=== PATIENT | female | born 1985 | race Caucasian/White ===

== ENCOUNTER 2016-08-28 23:25 | Inpatient (IN) | payer OTHER ==
[~2016-08-28] VITALS: Ht 154.9 cm; Wt 84.0 kg
[~2016-08-28 23:25] MED LIST: CIPR-9 PO; METH10TA PO
[2016-08-28 23:34] VITALS: BP 124/61; PULSE 108; RESP 16; TEMP 98.5; O2SAT 97
[2016-08-29] VITALS (11 sets, daily range): BP systolic 104–138; BP diastolic 57–65; PULSE 68–95; RESP 13–18; TEMP 98.3–99.1; O2SAT 94–100
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
[2016-08-29] MEDS ORDERED: HYDROmorphone HCL PF 1 MG/ML VIAL IV PUSH ONE (01:15)
[2016-08-29] MEDS ORDERED: CLINDAMYCIN INJ 900 MG in SODIUM CHLORIDE 0.9% INJ 100 ML IV ONE (01:15)
[2016-08-29] MEDS ORDERED: VANCOMYCIN INJ 1,200 MG in SODIUM CHLOR 0.9% 250 ML INJ 250 ML IV ONE (01:15)
[2016-08-29] MEDS ORDERED: SODIUM CHLOR 0.9% 1000 ML INJ 1,000 ML IV ONE ×2 (01:15)
[2016-08-29] MEDS ORDERED: CEFEPIME INJ 2,000 MG in SODIUM CHLORIDE 0.9% INJ 100 ML IV ONE (01:15)
[2016-08-29 01:44] LABS: AUTOMATED NEUTROPHIL # 11.9 TH/MM3 (1.8-7.7); BASOPHIL % 0.2 % (0.0-2.0); EOSINOPHIL # 0.5 TH/MM3 (0-0.4); EOSINOPHIL % 3.3 % (0.0-4.0); HEMATOCRIT 30.2 % (35.0-46.0); HEMO FLAGS DIFF FINAL; LYMPH % 13.1 % (9.0-44.0); MEAN CELL VOLUME 87.3 FL (80.0-100.0); MEAN CORPUSCULAR HEMOGLOBIN 29.4 PG (27.0-34.0); MEAN CORPUSCULAR HGB CONC 33.7 % (32.0-36.0); NEUT % 76.4 % (16.0-70.0); PLATELET COUNT 224 TH/MM3 (150-450); RED BLOOD COUNT 3.46 MIL/MM3 (4.00-5.30); RED CELL DISTRIBUTION WIDTH 13.7 % (11.6-17.2); WHITE BLOOD COUNT 15.5 TH/MM3 (4.0-11.0)
[2016-08-29] MEDS ORDERED: KETAMINE HCL 500 MG/5 ML VIAL IV PUSH ONE (01:45)
[2016-08-29 01:49] LABS: BACTERIA, URINE RARE /hpf; BLOOD, URINE NEG (NEG); GLUCOSE,URINE NEG (NEG); HYALINE CAST, URINE 1 /lpf (RARE); KETONE, URINE NEG (NEG); MUCUS URINE MOD /lpf (OCC); NITRITE,URINE NEG (NEG); PH, URINE 6.5 (5.0-8.5); RENAL EPITHELIAL CELLS <1 /hpf; SQUAMOUS EPITHELIAL CELL URINE 2 /hpf (0-5); URINE COLOR YELLOW (YELLW/STRAW)
[2016-08-29 01:50] LABS: COMMENT (UR) CATH-CULTURE IND; CULTURE IF INDICATED CATH CULTURE IND
[2016-08-29 01:51] LABS: ALT (GPT) 23 U/L (10-53); ANION GAP 8 MEQ/L (5-15); AST (GOT) 21 U/L (15-37); BICARBONATE 26.9 MEQ/L (21.0-32.0); BLOOD UREA NITROGEN 15 MG/DL (7-18); CHLORIDE 105 MEQ/L (98-107); GLOMERULAR FILTRATION RATE 97 ML/MIN (>89); POTASSIUM 3.8 MEQ/L (3.5-5.1); SODIUM (NA) 140 MEQ/L (136-145)
[2016-08-29 01:53] LABS: ALKALINE PHOSPHATASE 91 U/L (45-117); TOTAL BILIRUBIN ADULT 0.1 MG/DL (0.2-1.0)
[2016-08-29] MEDS ORDERED: ONDANSETRON HCL 4 MG/2 ML VIAL ONE (01:57)
[2016-08-29] MEDS ORDERED: BISACODYL 10 MG SUPP PR PRN (02:30)
[2016-08-29] MEDS ORDERED: Vancomycin Consult Pharmacy 1 EA OTHER SCH (02:30)
[2016-08-29] MEDS ORDERED: ACETAMINOPHEN 325 MG TAB PO PRN (02:30)
[2016-08-29] MEDS ORDERED: SODIUM CHLORIDE 0.9% FLUSH 5 ML FLUSH FLUSH PRN (02:30)
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
[2016-08-29] MEDS: SODIUM CHLOR 0.9% 1000 ML INJ 1,000 ML IV SCH ×3 (03:10→22:28)
[2016-08-29] MEDS: SODIUM CHLORIDE 0.9% FLUSH 5 ML FLUSH FLUSH SCH ×2 (09:00→21:00)
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
[2016-08-29] MEDS ORDERED: PROPOFOL 200 MG/20 ML AMP IV ONE (12:00)
[2016-08-29] MEDS: CEFEPIME INJ 1,000 MG in SODIUM CHLORIDE 0.9% INJ 100 ML IV SCH (14:00)
[2016-08-29] MEDS: ONDANSETRON HCL 4 MG/2 ML VIAL IVP PRN (14:01)
[2016-08-29] MEDS: LORazepam 2 MG/ML VIAL IV PUSH PRN (14:01)
[2016-08-29] MEDS: MORPHINE SULFATE 4 MG/ML INJ IV PRN (14:02)
[2016-08-29] MEDS ORDERED: BUPIVACAINE HCL PF 0.5% 30 ML VIAL ONE (14:58)
[2016-08-29] MEDS ORDERED: LIDOCAINE HCL 0.5% PF 50 ML VIAL ONE (14:58)
[2016-08-29] MEDS ORDERED: LIDOCAINE HCL 2% 50 ML VIAL ONE (14:59)
[2016-08-29] MEDS ORDERED: ceFAZolin INJ 1,000 MG VIAL ONE (15:00)
[2016-08-29] MEDS ORDERED: fentaNYL CITRATE 250 MCG/5 ML AMP ONE (15:44)
[2016-08-29] MEDS ORDERED: POVIDONE IODINE 10% SOLN 118 ML BOTTLE OTHER ONE (16:25)
[2016-08-29] MEDS ORDERED: NEOMYCIN/POLYMYXIN 1 ML G.U. IRRIGANT XX ONE (16:25)
--- NOTE | 2016-08-29 16:58 | HHI.PR ---
Immediate Post Op Note Procedure Date: Aug 29, 2016 Pre Op Diagnosis: (1) Cellulitis of right upper extremity Post Op Diagnosis: Surgeon: Aleksey Lezama III Maintenance Manager(s): staff Procedure: Incision and drainage of two large abscesses of right forearm Complications: none Specimen(s) removed: cultures Anesthesia: General Drains: Milena IVF Tourniquet time (min at mmHg) 7min @ 200mm Hg Patient to: PACU Patient Condition: Good Aleksey Lezama III, MD Aug 29, 2016 16:58
[2016-08-29] MEDS ORDERED: *morphine SULFATE 8 MG/ML PERIprocedure ONLY ONE ×2 (17:11→18:15)
[2016-08-29] MEDS ORDERED: DO NOT ADM ANY ANTICOAGULANT DRUGS XX PRN (18:00)
[2016-08-30] VITALS (8 sets, daily range): BP systolic 89–129; BP diastolic 40–79; PULSE 70–81; RESP 16–18; TEMP 97.4–98.8; O2SAT 92–100
[2016-08-30] MEDS: CEFEPIME INJ 1,000 MG in SODIUM CHLORIDE 0.9% INJ 100 ML IV SCH ×3 (00:29→23:37)
[2016-08-30] MEDS ORDERED: SODIUM CHLOR 0.9% 1000 ML INJ 1,000 ML IV ONE ×2 (01:15→09:15)
[2016-08-30] MEDS: VANCOMYCIN 1,000 MG/NS 250 ML IV SCH ×4 (03:35→15:10)
[2016-08-30] MEDS: MORPHINE SULFATE 4 MG/ML INJ IV PRN ×4 (09:01→21:38)
[2016-08-30] MEDS: SODIUM CHLORIDE 0.9% FLUSH 5 ML FLUSH FLUSH SCH ×2 (09:02→21:38)
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
[2016-08-30] MEDS ORDERED: HYDROmorphone HCL PF 1 MG/ML VIAL IV PUSH ONE (10:00)
[2016-08-30 12:13] LABS: AUTOMATED NEUTROPHIL # 8.6 TH/MM3 (1.8-7.7); BASOPHIL # 0.1 TH/MM3 (0-0.2); BASOPHIL % 0.5 % (0.0-2.0); EOSINOPHIL # 0.4 TH/MM3 (0-0.4); EOSINOPHIL % 3.4 % (0.0-4.0); HEMATOCRIT 34.6 % (35.0-46.0); HEMO FLAGS DIFF FINAL; LYMPH % 22.7 % (9.0-44.0); LYMPHOCYTE # 2.9 TH/MM3 (1.0-4.8); MEAN CELL VOLUME 87.3 FL (80.0-100.0); MEAN CORPUSCULAR HGB CONC 33.2 % (32.0-36.0); MONO % 5.9 % (0.0-8.0); NEUT % 67.5 % (16.0-70.0); PLATELET COUNT 260 TH/MM3 (150-450); RED BLOOD COUNT 3.97 MIL/MM3 (4.00-5.30); RED CELL DISTRIBUTION WIDTH 13.6 % (11.6-17.2); WHITE BLOOD COUNT 12.7 TH/MM3 (4.0-11.0)
[2016-08-30 12:20] LABS: ALT (GPT) 22 U/L (10-53); ANION GAP 10 MEQ/L (5-15); AST (GOT) 18 U/L (15-37); BICARBONATE 23.7 MEQ/L (21.0-32.0); CHLORIDE 109 MEQ/L (98-107); GLOMERULAR FILTRATION RATE 110 ML/MIN (>89); POTASSIUM 4.4 MEQ/L (3.5-5.1); SODIUM (NA) 143 MEQ/L (136-145)
[2016-08-30 12:22] LABS: ALKALINE PHOSPHATASE 92 U/L (45-117); TOTAL BILIRUBIN ADULT 0.2 MG/DL (0.2-1.0)
[2016-08-30 12:24] LABS: BLOOD UREA NITROGEN 8 MG/DL (7-18)
[2016-08-30] MEDS ORDERED: PHARMACY ORDERED LAB XX ONE (14:45)
--- NOTE | 2016-08-30 15:11 | HHI.PR ---
Subjective Remarks pain appears controlled Objective Vital Signs Date Time Temp Pulse Resp B/P Pulse Ox O2 Delivery O2 Flow Rate FiO2 08/30/16 13:36 20 08/30/16 12:00 97.9 81 17 98/53 97 08/30/16 11:15 98 21 08/30/16 10:23 17 08/30/16 09:06 19 08/30/16 08:00 98.8 70 17 90/40 96 08/30/16 04:00 98.6 72 18 99/56 95 08/30/16 00:00 98.8 78 18 89/54 95 08/29/16 21:33 97 Nasal Cannula 2.00 08/29/16 20:00 98.3 70 18 104/58 97 08/29/16 19:00 99.2 76 14 105/56 97 Room Air 08/29/16 18:00 77 13 123/74 99 Nasal Cannula 2 08/29/16 17:30 70 13 128/75 99 Nasal Cannula 2 08/29/16 17:15 66 13 117/68 99 Nasal Cannula 2 08/29/16 17:00 71 18 123/67 99 Nasal Cannula 2 08/29/16 16:57 98.0 71 18 131/77 99 Nasal Cannula 2 I/O 08/29/16 08/29/16 08/29/16 08/30/16 08/30/16 08/30/16 07:00 15:00 23:00 07:00 15:00 23:00 Intake Total 980 ml 1587 ml Output Total 225 ml 400 ml Balance 755 ml 1187 ml Intake Oral 480 ml 480 ml IV Total 100 ml 1107 ml Other 400 ml Output Urine Total 175 ml 400 ml Estimated Blood Loss 50 ml # Voids 1 # Bowel Movements 0 Result Diagram: 08/30/16 1100 08/30/16 1100 Objective Remarks right forearm wounds are clean, no purulence anywhere; cellulitis resolving, edema improved by more than 50%; NVI throughout; CR 2 seconds in finger tips; hand and forearm are soft; no crepitance anywhere or induration Assessment and Plan Problem List: (1) Cellulitis of right upper extremity Status: Acute Plan: continue IV abx, elevation, packing changes I will be out of town next several days; Dr Sierra will be covering (2) Sepsis affecting skin Status: Acute (3) Abscess Status: Acute Blaum,Aleksey Dell III MD Aug 30, 2016 15:11
[2016-08-31] VITALS (7 sets, daily range): BP systolic 96–153; BP diastolic 58–81; PULSE 60–88; RESP 15–18; TEMP 97–98.2; O2SAT 95–99
[2016-08-31] MEDS: VANCOMYCIN INJ 1,250 MG in SODIUM CHLOR 0.9% 250 ML INJ 250 ML IV SCH ×2 (02:47→15:43)
[2016-08-31] MEDS: MORPHINE SULFATE 4 MG/ML INJ IV PRN ×5 (05:44→17:49)
[2016-08-31] MEDS: SODIUM CHLORIDE 0.9% FLUSH 5 ML FLUSH FLUSH SCH ×2 (08:14→21:54)
[2016-08-31] MEDS: LORazepam 2 MG/ML VIAL IV PUSH PRN ×2 (09:21→13:11)
[2016-08-31] MEDS: CEFEPIME INJ 1,000 MG in SODIUM CHLORIDE 0.9% INJ 100 ML IV SCH (11:13)
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
[2016-08-31] MEDS ORDERED: MORPHINE SULFATE 4 MG/ML INJ IV PUSH PRN (19:45)
[2016-08-31] MEDS ORDERED: NALOXONE HCL 0.4 MG/ML AMP IV PUSH PRN (20:15)
[2016-08-31] MEDS: MORPHINE SULFATE 4 MG/ML INJ IV PUSH PRN (20:51)
[2016-08-31] MEDS: REMOVE OLD NICODERM (NICOTINE) PATCH TD SCH (21:00)
[2016-08-31] MEDS: METHADONE HCL 10 MG TAB PO SCH (21:54)
[2016-08-31] MEDS: NICOTINE 21 MG/24 HR PATCH TD SCH (21:54)
[2016-09-01] VITALS: BP 120/57; PULSE 76; RESP 17; TEMP 97.7; O2SAT 97
[2016-09-01] MEDS: CEFEPIME INJ 1,000 MG in SODIUM CHLORIDE 0.9% INJ 100 ML IV SCH ×2 (00:21→11:33)
[2016-09-01] MEDS: MORPHINE SULFATE 4 MG/ML INJ IV PUSH PRN ×5 (03:53→19:59)
[2016-09-01] MEDS: VANCOMYCIN INJ 1,250 MG in SODIUM CHLOR 0.9% 250 ML INJ 250 ML IV SCH ×2 (03:54→16:08)
[2016-09-01 07:39] VITALS: BP 115/57; PULSE 63; RESP 17; TEMP 98.1; O2SAT 95
[2016-09-01] MEDS: NICOTINE 21 MG/24 HR PATCH TD SCH (08:39)
[2016-09-01] MEDS: SODIUM CHLORIDE 0.9% FLUSH 5 ML FLUSH FLUSH SCH ×2 (08:40→20:00)
[2016-09-01 11:56] LABS: AUTOMATED NEUTROPHIL # 5.3 TH/MM3 (1.8-7.7); BASOPHIL # 0.1 TH/MM3 (0-0.2); BASOPHIL % 0.9 % (0.0-2.0); EOSINOPHIL # 0.5 TH/MM3 (0-0.4); EOSINOPHIL % 6.1 % (0.0-4.0); HEMATOCRIT 32.4 % (35.0-46.0); LYMPH % 25.9 % (9.0-44.0); LYMPHOCYTE # 2.3 TH/MM3 (1.0-4.8); MEAN CELL VOLUME 87.4 FL (80.0-100.0); MEAN CORPUSCULAR HGB CONC 33.2 % (32.0-36.0); MONO % 7.2 % (0.0-8.0); NEUT % 59.9 % (16.0-70.0); PLATELET COUNT 275 TH/MM3 (150-450); RED BLOOD COUNT 3.71 MIL/MM3 (4.00-5.30); RED CELL DISTRIBUTION WIDTH 13.6 % (11.6-17.2); WHITE BLOOD COUNT 8.8 TH/MM3 (4.0-11.0)
[2016-09-01 11:58] LABS: HEMO FLAGS AUTO DIFF
[2016-09-01 12:00] VITALS: BP 116/53; PULSE 73; RESP 16; TEMP 98.2; O2SAT 98
[2016-09-01 12:28] LABS: ALKALINE PHOSPHATASE 82 U/L (45-117); ALT (GPT) 60 U/L (10-53); ANION GAP 8 MEQ/L (5-15); AST (GOT) 44 U/L (15-37); BICARBONATE 27.3 MEQ/L (21.0-32.0); BLOOD UREA NITROGEN 8 MG/DL (7-18); CHLORIDE 107 MEQ/L (98-107); GLOMERULAR FILTRATION RATE 104 ML/MIN (>89); POTASSIUM 3.7 MEQ/L (3.5-5.1); SODIUM (NA) 142 MEQ/L (136-145); TOTAL BILIRUBIN ADULT 0.1 MG/DL (0.2-1.0)
[2016-09-01 12:39] LABS: BANDS 3 % (0-6); EOSINOPHILS 6 % (0-4); MYELOCYTES 1 % (0-0); NEUTROPHIL # MANUAL DIFF 5.5 TH/MM3 (1.8-7.7); POLYS (SEG NEUTROPHILS) 58 % (16-70); WBC DIFF SAMPLE 100
[2016-09-01 12:40] LABS: PLATELET ESTIMATE SMEAR NORMAL (NORMAL); PLATELET MORPHOLOGY NORMAL (NORMAL); SCAN/DIFF FINAL DIFF MANUAL
--- NOTE | 2016-09-01 14:34 | MP ---
cc: ALEKSEY LEZAMA III, M.D. DATE OF SURGERY: 08/29/2016 PREOPERATIVE DIAGNOSIS Right forearm cellulitis. POSTOPERATIVE DIAGNOSIS Right forearm cellulitis with abscesses x2. PROCEDURE Right forearm abscess incision and drainage x2. SURGEON Aleksey Lezama III, MD DETAILS OF PROCEDURE The patient was brought to the operating room and placed supine on the operating table. After the correct site and side of surgery were verified by members of each team in the room multiple times including the patient and myself and after adequate preoperative markings and preoperative written consent were verified by everyone, and after adequate preoperative timeout was achieved and after adequate general anesthesia had been achieved, the right upper extremity was prepped and draped in the traditional sterile surgical fashion. The limb was elevated and pressure was held on the brachial artery for one minute. A highly placed well-padded axillary tourniquet was inflated to 200 mmHg for a total of seven minutes. A probe was placed into two areas of previous incision and drainage that were continuing to drain purulent fluid. These were probed. Incisions were then made in both directions along the probe elevating the skin so as not to damage any underlying structures. Two large golf ball size pockets were made but did not include any deep structures. They were contained in the subcutaneous tissue. There was a tract between the two and this was accentuated and a drain was placed ultimately. All devitalized tissue was debrided and a liter's worth of antiseptic saline irrigation was used to thoroughly flush out the wound. The axillary tourniquet was released. The hand and all the fingers became immediately soft, pink and warm and had brisk capillary refill of less than two seconds. Generalized oozing at the skin edges at the base of the wound was present and pressure was held for two minutes and stopped completely. Gauze wet-to-dry packing was then placed along with a [place] drain. The hand and arm were thoroughly cleansed and dried. Hemostasis was present. There was no hematoma formation. A bulky soft circumferential dressing was applied in the usual fashion. The patient was awakened from anesthesia and transported to the post-anesthesia care unit awake and in stable condition at the end of the case. Sponge, needle and instrument counts were correct at the end of the case as reported by the nurses in the room. MD EDMAR Colmenares III /5:06 PM /2:17 PM
[2016-09-01] MEDS ORDERED: PHARMACY ORDERED LAB XX ONE (14:45)
[2016-09-01 16:00] VITALS: BP 140/72; PULSE 69; RESP 20; TEMP 97.8; O2SAT 95
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
[2016-09-01 20:00] VITALS: BP 125/58; PULSE 56; RESP 18; TEMP 98.7; O2SAT 96
[2016-09-01] MEDS: REMOVE OLD NICODERM (NICOTINE) PATCH TD SCH (20:00)
[2016-09-01] MEDS: METHADONE HCL 10 MG TAB PO SCH (21:21)
[2016-09-01] MEDS: HEPARIN SODIUM - SQ 10,000 UNITS/ML VIAL SQ SCH (21:22)
[2016-09-02] VITALS: BP 122/60; PULSE 54; RESP 16; TEMP 97.5; O2SAT 96
[2016-09-02] MEDS: MORPHINE SULFATE 4 MG/ML INJ IV PUSH PRN ×6 (00:33→19:01)
[2016-09-02] MEDS: CEFEPIME INJ 1,000 MG in SODIUM CHLORIDE 0.9% INJ 100 ML IV SCH ×3 (00:35→22:55)
[2016-09-02] MEDS ORDERED: PHARMACY ORDERED LAB XX ONE ×2 (02:45→14:45)
[2016-09-02] MEDS: VANCOMYCIN INJ 1,250 MG in SODIUM CHLOR 0.9% 250 ML INJ 250 ML IV SCH ×2 (03:00→15:58)
[2016-09-02] MEDS: HEPARIN SODIUM - SQ 10,000 UNITS/ML VIAL SQ SCH ×3 (05:39→20:35)
[2016-09-02 07:02] LABS: AUTOMATED NEUTROPHIL # 5.5 TH/MM3 (1.8-7.7); BASOPHIL # 0.1 TH/MM3 (0-0.2); BASOPHIL % 0.7 % (0.0-2.0); EOSINOPHIL # 0.5 TH/MM3 (0-0.4); EOSINOPHIL % 5.8 % (0.0-4.0); HEMATOCRIT 30.7 % (35.0-46.0); LYMPH % 26.2 % (9.0-44.0); LYMPHOCYTE # 2.4 TH/MM3 (1.0-4.8); MEAN CELL VOLUME 87.1 FL (80.0-100.0); MEAN CORPUSCULAR HEMOGLOBIN 29.2 PG (27.0-34.0); MEAN CORPUSCULAR HGB CONC 33.5 % (32.0-36.0); NEUT % 60.3 % (16.0-70.0); PLATELET COUNT 298 TH/MM3 (150-450); RED BLOOD COUNT 3.53 MIL/MM3 (4.00-5.30); RED CELL DISTRIBUTION WIDTH 13.3 % (11.6-17.2); WHITE BLOOD COUNT 9.1 TH/MM3 (4.0-11.0)
[2016-09-02 07:03] LABS: HEMO FLAGS AUTO DIFF
[2016-09-02 07:27] LABS: ALT (GPT) 48 U/L (10-53); ANION GAP 7 MEQ/L (5-15); AST (GOT) 24 U/L (15-37); BICARBONATE 29.2 MEQ/L (21.0-32.0); BLOOD UREA NITROGEN 12 MG/DL (7-18); CHLORIDE 105 MEQ/L (98-107); GLOMERULAR FILTRATION RATE 101 ML/MIN (>89); SODIUM (NA) 141 MEQ/L (136-145)
[2016-09-02 07:30] LABS: ALKALINE PHOSPHATASE 77 U/L (45-117); TOTAL BILIRUBIN ADULT 0.1 MG/DL (0.2-1.0)
[2016-09-02 08:00] VITALS: BP 119/61; PULSE 73; RESP 20; TEMP 98; O2SAT 95
[2016-09-02 08:06] LABS: EOSINOPHILS 8 % (0-4); METAMYELOCYTES 1 % (0-1); NEUTROPHIL # MANUAL DIFF 5.2 TH/MM3 (1.8-7.7); PLATELET ESTIMATE SMEAR NORMAL (NORMAL); PLATELET MORPHOLOGY NORMAL (NORMAL); POLYS (SEG NEUTROPHILS) 56 % (16-70); SCAN/DIFF FINAL DIFF MANUAL; WBC DIFF SAMPLE 100
[2016-09-02] MEDS: NICOTINE 21 MG/24 HR PATCH TD SCH (10:02)
[2016-09-02] MEDS: SODIUM CHLORIDE 0.9% FLUSH 5 ML FLUSH FLUSH SCH ×2 (10:02→20:35)
[2016-09-02 12:00] VITALS: BP 94/61; PULSE 74; RESP 20; TEMP 97.9; O2SAT 99
[2016-09-02] MEDS ORDERED: SODIUM CHLORID 0.9% 500 ML INJ 500 ML IV ONE (14:15)
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
[2016-09-02 17:28] VITALS: BP 120/56; PULSE 72; RESP 20; TEMP 98.4; O2SAT 96
[2016-09-02 20:21] VITALS: BP 126/67; PULSE 60; RESP 18; TEMP 99.1; O2SAT 97
[2016-09-02] MEDS: METHADONE HCL 10 MG TAB PO SCH (20:35)
[2016-09-02] MEDS: REMOVE OLD NICODERM (NICOTINE) PATCH TD SCH (20:36)
[2016-09-03 00:18] VITALS: BP 128/57; PULSE 79; RESP 18; TEMP 97.2; O2SAT 98
[2016-09-03] MEDS: MORPHINE SULFATE 4 MG/ML INJ IV PUSH PRN ×6 (02:16→22:15)
[2016-09-03] MEDS ORDERED: PHARMACY ORDERED LAB XX ONE (02:45)
[2016-09-03] MEDS: HEPARIN SODIUM - SQ 10,000 UNITS/ML VIAL SQ SCH ×3 (06:00→19:25)
[2016-09-03] MEDS: VANCOMYCIN INJ 1,250 MG in SODIUM CHLOR 0.9% 250 ML INJ 250 ML IV SCH (06:36)
[2016-09-03 08:00] VITALS: BP 104/51; PULSE 67; RESP 18; TEMP 96.4; O2SAT 96
[2016-09-03] MEDS: NICOTINE 21 MG/24 HR PATCH TD SCH (08:48)
[2016-09-03] MEDS: SODIUM CHLORIDE 0.9% FLUSH 5 ML FLUSH FLUSH SCH ×2 (08:48→19:28)
[2016-09-03] MEDS: CEFEPIME INJ 1,000 MG in SODIUM CHLORIDE 0.9% INJ 100 ML IV SCH ×2 (11:55→23:54)
[2016-09-03 12:00] VITALS: BP 110/52; PULSE 59; RESP 16; TEMP 96.4; O2SAT 95
[2016-09-03] MEDS: ONDANSETRON HCL 4 MG/2 ML VIAL IVP PRN (12:54)
[2016-09-03 16:00] VITALS: BP 102/51; PULSE 62; RESP 18; TEMP 96.5; O2SAT 93
[2016-09-03] MEDS ORDERED: BACT800T5 PO (16:54)
[2016-09-03] MEDS ORDERED: DOXY1TAB6 PO (16:54)
[2016-09-03] MEDS ORDERED: ONDA4INJ2 IVP (16:54)
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
--- NOTE | 2016-09-03 16:56 | HHI.DCPOC ---
Discharge Care Plan Diagnosis: (1) Sepsis affecting skin (2) Transaminitis (3) Hypotension (4) UTI (urinary tract infection) (5) Abscess (6) Cellulitis of right upper extremity Goals to Promote Your Health * To prevent worsening of your condition and complications * To maintain your health at the optimal level Directions to Meet Your Goals Take your medications as prescribed Follow your dietary instruction Follow activity as directed Keep your appointments as scheduled Take your immunizations and boosters as scheduled If your symptoms worsen call your PCP, if no PCP go to Urgent Care Center or Emergency Room Smoking is Dangerous to Your Health. Avoid second hand smoke Call the 24-hour hour crisis hotline for domestic abuse at Akbar Raymundo MD Sep 03, 2016 16:55
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
[2016-09-03] MEDS ORDERED: VANCOMYCIN INJ 1,500 MG in SODIUM CHLORID 0.9% 500 ML INJ 500 ML IV SCH (18:00)
--- NOTE | 2016-09-03 18:56 | HHI.FF ---
Face to Face Verification Diagnosis: (1) Sepsis affecting skin (2) Cellulitis of right upper extremity (3) Hypotension (4) UTI (urinary tract infection) Home Health Nursing Order: Wound care and dressing changes Nursing assessment with vital signs I have seen patient Mirtha Lo on 09/03/16. My clinical findings support the need for the requested home health care services because: Limited ability to care for self Infection w/ risk of complications I certify that my clinical findings support that this patient is homebound because: Unsteady gait/balance Unsafe to leave home unassisted Akbar Raymundo MD Sep 03, 2016 18:56
[2016-09-03] MEDS ORDERED: OXYC-392 PO (19:06)
[2016-09-03] MEDS: METHADONE HCL 10 MG TAB PO SCH (19:25)
[2016-09-03] MEDS: REMOVE OLD NICODERM (NICOTINE) PATCH TD SCH (19:28)
[2016-09-03 20:00] VITALS: BP 114/67; PULSE 89; RESP 18; TEMP 97.8; O2SAT 98
[2016-09-04 00:23] VITALS: BP 120/83; PULSE 79; RESP 18; TEMP 97; O2SAT 98
[2016-09-04] MEDS: MORPHINE SULFATE 4 MG/ML INJ IV PUSH PRN ×2 (01:36→09:33)
[2016-09-04] MEDS: HEPARIN SODIUM - SQ 10,000 UNITS/ML VIAL SQ SCH (06:24)
[2016-09-04 08:00] VITALS: BP 102/60; PULSE 70; RESP 18; TEMP 96.5; O2SAT 94
[2016-09-04] MEDS ORDERED: VANCOMYCIN INJ 1,500 MG in SODIUM CHLORID 0.9% 500 ML INJ 500 ML IV SCH (08:00)
[2016-09-04] MEDS: SODIUM CHLORIDE 0.9% FLUSH 5 ML FLUSH FLUSH SCH (08:13)
[2016-09-04] MEDS: NICOTINE 21 MG/24 HR PATCH TD SCH (08:15)
== END 2016-09-04 10:27 | disposition home health service (06) | DRG 854 ==
LOC: NEPE 23:25 → NEDA 08-29 02:19 → NEDH 08-29 06:44 → NEDA 08-29 12:39 → N07B 08-29 19:38
PROVIDERS: ADMIT Hospitalist; ATTEND Hospitalist
PROC: 0J9G0ZZ Drainage of Right Lower Arm Subcutaneous Tissue and Fascia, Open Approach (ICD-10-PCS; principal; 2016-08-29 15:48)
DX: A41.9 Sepsis, unspecified organism (principal); N39.0 Urinary tract infection, site not specified; F11.20 Opioid dependence, uncomplicated; F14.20 Cocaine dependence, uncomplicated; L02.413 Cutaneous abscess of right upper limb; T22.00XA Burn of unspecified degree of shoulder and upper limb, except wrist and hand, unspecified site, initial encounter; L03.113 Cellulitis of right upper limb; F17.200 Nicotine dependence, unspecified, uncomplicated; J38.5 Laryngeal spasm
CPT/HCPCS: 10061; 76937; 80053; 80074; 80202; 81001; 82565; 83605; 85007; 85025; 85027; 87015; 87040; 87070; 87086; 87102; 87116; 87176; 87205; 87206; 94770; 96365; 96375; 99152; 99153; J0690; J0692; J1170; J1644; J2060; J2270; J2405; J3010; J3370; J7030; J7040; J7050

== ENCOUNTER 2017-04-25 09:08 | Emergency (ER) | payer SELFPAY ==
[~2017-04-25] VITALS: Ht 152.4 cm; Wt 75.0 kg
[~2017-04-25 09:08] MED LIST changes: +BACT800T5 PO; -CIPR-9 PO; +DOXY1TAB6 PO; +OXYC-392 PO
[2017-04-25 09:11] VITALS: BP 132/58; PULSE 67; RESP 15; TEMP 97.8; O2SAT 96
[2017-04-25] MEDS ORDERED: METH40TA PO (09:28)
[2017-04-25] MEDS ORDERED: VENTAER INH (09:49)
--- NOTE | 2017-04-25 10:02 | PD ---
HPI Chief Complaint: Edema Time Seen by Provider: 09:36 Travel History International Travel<30 days: No Contact w/Intl Traveler<30days: No Traveled to known affect area: No History of Present Illness HPI The patient was seen and examined in the presence of the nurse. This patient complains of a one year history of bilateral hand pain and swelling. Pain limited to the small joints of the hands and sometimes the risks. No injury. History of IV drug abuse but denies use the last 7 months. No fever. No chest symptoms. No alleviating factors PFSH Past Medical History ?: Not LMP: 03/22/17 : 4 Para: 3 Miscarriage: 1 Ovarian Cysts: Yes Tubal Ligation: Yes Past Surgical History Section: Yes (X2) Other Surgery: Yes () Social History Alcohol Use: Yes Tobacco Use: Yes Substance Use: Yes (frequent heroin use, COCAINE) Allergies-Medications (Allergen,Severity, Reaction): Coded Allergies: No Known Allergies (Unverified , 04/25/17) Reported Meds & Prescriptions Reported Meds & Active Scripts Active Ventolin Hfa 18 GM Inh (Albuterol Sulfate) 90 Mcg/Act Aer 2 Puff INH Q6H PRN Reported Methadone (Methadone HCl) 40 Mg Tab 160 Mg PO DAILY Review of Systems General / Constitutional: No: Fever Eyes: No: Visual changes HENT: No: Headaches Cardiovascular: No: Chest Pain or Discomfort Respiratory: Positive: Shortness of Breath, Wheezing Gastrointestinal: No: Abdominal Pain Genitourinary: No: Dysuria Musculoskeletal: Positive: Edema, Pain Skin: No Rash Neurologic: No: Weakness Psychiatric: Positive: Substance Abuse, No: Depression Endocrine: No: Polydipsia Hematologic/Lymphatic: No: Easy Bruising Physical Exam Narrative GENERAL: Well-nourished, well-developed patient in no apparent distress. SKIN: Focused skin assessment reveals no rash and nodules. Skin is Warm and dry. HEAD: Atraumatic. Normocephalic. EYES: Pupils equal and round. No scleral icterus. No injection or drainage. ENT: No nasal bleeding or discharge. Mucous membranes pink and moist. NECK: Trachea midline. No JVD. CARDIOVASCULAR: Regular rate and rhythm. No murmur appreciated. RESPIRATORY: No accessory muscle use. Mild expiratory wheezing. Breath sounds equal bilaterally. GASTROINTESTINAL: Abdomen soft, non-tender, nondistended. Hepatic and splenic margins not palpable. MUSCULOSKELETAL: No obvious deformities. No clubbing. No cyanosis. Does have minor edema in the hands symmetric without erythema. No fluctuance or drainage. NEUROLOGICAL: Awake and alert. No obvious cranial nerve deficits. Motor grossly within normal limits. Normal speech. PSYCHIATRIC: Appropriate mood and affect; insight and judgment questionable . Data Data Last Documented VS Vital Signs Date Time Temp Pulse Resp B/P (MAP) Pulse Ox O2 Delivery O2 Flow Rate FiO2 04/25/17 09:11 97.8 67 15 132/58 (82) 96 MDM Medical Decision Making Medical Screen Exam Complete: Yes Emergency Medical Condition: Yes Medical Record Reviewed: Yes Differential Diagnosis Rheumatoid, lupus, connective tissue disorder nonspecific Narrative Course I have reviewed the patient's electronic medical record. Patient was here febrile or 2017 with infection requiring operative drainage Today seems like she has some type of undiagnosed connective tissue disease. I don't feel this is infectious. Recommend primary care follow-up to start. I did write her an inhaler for her wheezing and discussed smoking cessation Given information for [facility] Diagnosis Primary Impression: Undifferentiated inflammatory arthritis Additional Impression: Wheezing Additional Instructions: The patient was advised to follow up with their physician and return if they worsen. Med/Other Pt SpecificInfo: Prescription(s) given Scripts Albuterol 18 GM Inh (Ventolin Hfa 18 GM Inh) 90 Mcg/Act Aer 2 PUFF INH Q6H Y for SHORTNESS OF BREATH, #1 INHALER 0 Refills Prov: Pramod Fischer MD 04/25/17 Disposition: 01 DISCHARGE HOME Condition: Stable Pramod Fischer MD Apr 25, 2017 10:02
== END 2017-04-25 10:26 | disposition home or self-care (01) ==
LOC: NEPD 09:08
DX: M13.80 Other specified arthritis, unspecified site (principal); R06.2 Wheezing
CPT/HCPCS: 99283

== ENCOUNTER 2017-07-05 12:38 | Emergency (ER) | payer SELFPAY ==
[~2017-07-05] VITALS: Ht 154.9 cm; Wt 73.0 kg
[~2017-07-05 12:38] MED LIST changes: -BACT800T5 PO; -DOXY1TAB6 PO; -METH10TA PO; +METH40TA PO; -OXYC-392 PO; +VENTAER INH
[2017-07-05 12:40] VITALS: BP 124/65; PULSE 86; RESP 18; TEMP 97.8; O2SAT 98
--- NOTE | 2017-07-05 14:19 | PD ---
HPI Chief Complaint: ENT Complaint Time Seen by Provider: 13:50 Travel History International Travel<30 days: No Contact w/Intl Traveler<30days: No Traveled to known affect area: No History of Present Illness HPI 32-year-old female presents to the ED for evaluation at 2 day history of sore throat, bilateral ear pain, left greater than right, sinus congestion, rhinorrhea, cough. He endorses chills but has not measured a fever at home. She denies hearing difficulties. She states that her cough is productive of "black stuff." He states that she hears a scratching noise in her left ear. She did not receive this years flu vaccine. She endorses sick contacts, states that her boyfriend has been sick with similar symptoms. No treatment attempt at home. She is a current smoker. PFSH Past Medical History Medical History: Denies Significant Hx Diminished Hearing: No Tetanus Vaccination: Unknown ?: Not LMP: 07/04/17 : 4 Para: 3 Miscarriage: 1 Ovarian Cysts: Yes Tubal Ligation: Yes Past Surgical History Section: Yes (X2) Other Surgery: Yes () Social History Alcohol Use: No Tobacco Use: Yes Substance Use: No Allergies-Medications (Allergen,Severity, Reaction): Coded Allergies: No Known Allergies (Unverified Adverse Reaction, Unknown, 07/05/17) Reported Meds & Prescriptions Reported Meds & Active Scripts Active Tessalon Perles (Benzonatate) 100 Mg Cap 200 Mg PO TID PRN Ventolin Hfa 18 GM Inh (Albuterol Sulfate) 90 Mcg/Act Aer 2 Puff INH Q6H PRN Reported Methadone (Methadone HCl) 40 Mg Tab 160 Mg PO DAILY Review of Systems Except as stated in HPI: all other systems reviewed are Neg Physical Exam Narrative GENERAL: Well-nourished, well-developed white female in no acute distress. SKIN: Warm and dry. HEAD: Normocephalic. Atraumatic. EYES: No scleral icterus. No injection or drainage. PERRLA. EOMI. ENT: Pearly bell tympanic membranes bilaterally. No evidence of trauma of the ear canal. Nasal mucosa is moist. Oropharynx mild posterior erythema. Scant exudate. No edema. Uvula midline. NECK: Supple, trachea midline. No JVD or lymphadenopathy. CARDIOVASCULAR: Regular rate and rhythm without murmurs, gallops, or rubs RESPIRATORY: Breath sounds clear and equal bilaterally. No accessory muscle use. GASTROINTESTINAL: Abdomen soft, non-tender, nondistended. + Bowel sounds MUSCULOSKELETAL: No cyanosis, or edema. BACK: Nontender without obvious deformity. No CVA tenderness. Data Data Last Documented VS Vital Signs Date Time Temp Pulse Resp B/P (MAP) Pulse Ox O2 Delivery O2 Flow Rate FiO2 07/05/17 12:40 97.8 86 18 124/65 (84) 98 Orders Orders Influenzae A/B Antigen (07/05/17 14:15) Group A Rapid Strep Screen (07/05/17 14:15) Acetaminophen (Tylenol) (07/05/17 14:45) Strep Culture (Group A) (07/05/17 14:37) MDM Medical Decision Making Medical Screen Exam Complete: Yes Emergency Medical Condition: Yes Differential Diagnosis Viral syndrome versus foreign body of the ear versus cerumen impaction versus otitis media versus otitis externa versus influenza versus strep pharyngitis versus strep pharyngitis versus other Narrative Course 32-year-old female presents to the ED for evaluation at 2 day history of sore throat, bilateral ear pain, left greater than right, sinus congestion, rhinorrhea, cough. She did not receive this years flu vaccine. She endorses sick contacts, states that her boyfriend has been sick with similar symptoms. She is a current smoker. Lives reviewed. ENT exam reveals mild posterior oropharyngeal erythema and possibly scant exudates, otherwise unremarkable. Patient was administered 650 mg Tylenol. Rapid strep and flu swabs negative. This is viral syndrome. Patient is encouraged to continue treating with OTC pain relievers and decongestants. She is prescribed short course of Tessalon Perles to control cough. She is instructed to follow-up with the [facility] and was provided their information. She is stable and discharged home. Diagnosis Primary Impression: Viral syndrome Referrals: Ear / Nose / Throat Specialist Patient Instructions: General Instructions, Viral Syndrome (ED) Additional Instructions: Rest, hydrate. Push fluids such as sports drinks, Pedialyte, popsicles, clear broth. Continue with symptomatic treatment with OTC medications such as decongestants, pain relievers Tessalon Perles 3 times a day as needed to control cough. Increase handwashing frequently to avoid the spread of the virus to other family members and the community. Disinfect commonly touched surfaces such as light switches, microwaves, remote controls. Replace toothbrush at the end of this illness. Follow-up with the primary care provider this week. Return to the ED for any urgent or emergent medical condition. Med/Other Pt SpecificInfo: Prescription(s) given Scripts Benzonatate (Tessalon Perles) 100 Mg Cap 200 MG PO TID Y for COUGH, #15 CAP 0 Refills Prov: Efrain Her MD 07/05/17 Disposition: 01 DISCHARGE HOME Condition: Stable Carrie Lma Jul 05, 2017 14:19
[2017-07-05] MEDS ORDERED: ACETAMINOPHEN 325 MG TAB PO ONE (14:45)
[2017-07-05] MEDS ORDERED: BENZ100 PO (15:28)
== END 2017-07-05 15:57 | disposition home or self-care (01) ==
LOC: NEPD 12:38
DX: B34.9 Viral infection, unspecified (principal); Z72.0 Tobacco use; Z79.899 Other long term (current) drug therapy
CPT/HCPCS: 87081; 87804; 87880; 99283

== ENCOUNTER 2017-07-11 15:01 | Emergency (ER) | payer SELFPAY ==
[~2017-07-11 15:01] MED LIST changes: +BENZ100 PO
[2017-07-11 15:04] VITALS: BP 141/96; PULSE 95; RESP 14; TEMP 98.4; O2SAT 98
--- NOTE | 2017-07-11 16:23 | PD ---
HPI Chief Complaint: Anxiety Time Seen by Provider: 16:02 Travel History International Travel<30 days: No Contact w/Intl Traveler<30days: No Traveled to known affect area: No History of Present Illness HPI 32-year-old female presents to emergency department with multiple medical complaints complaining of left ear pain and throat pain. States that she was here last week and was treated for her throat pain but her left ear continues to be painful and she hears "crawling around in her ear". Patient also complains of decreased hearing. Patient states that she is also having some lesions on her scan and again feels like there are bugs crawling on her skin. 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 Patient then started complaining about vaginal discharge for 2 weeks described as creamy and yellow with an odor. Patient says that she is monogamous however, her boyfriend may not be. Patient states she had a tubal ligation previously says she is not . Patient denies fever or chills. States she does not have shortness of breath or chest pain. Denies nausea, vomiting or diarrhea. Denies pelvic cramping. Says she is monogamous but is unsure of her significant other. Patient denies fever or chills. PFSH Past Medical History Diminished Hearing: No : 4 Para: 3 Miscarriage: 1 Ovarian Cysts: Yes Tubal Ligation: Yes Past Surgical History Section: Yes (X2) Other Surgery: Yes () Social History Alcohol Use: No Tobacco Use: Yes Substance Use: No Allergies-Medications (Allergen,Severity, Reaction): Coded Allergies: No Known Allergies (Unverified Adverse Reaction, Unknown, 07/05/17) Reported Meds & Prescriptions Reported Meds & Active Scripts Active Permethrin Topical 5% (Permethrin) 5% Cream 1 Applic TOPICAL ONCE Apply head to toe, leave on for 8-12 hours, then rinse off. Ventolin Hfa 18 GM Inh (Albuterol Sulfate) 90 Mcg/Act Aer 1 Puff INH Q4H PRN Tessalon Perles (Benzonatate) 100 Mg Cap 200 Mg PO TID PRN Ventolin Hfa 18 GM Inh (Albuterol Sulfate) 90 Mcg/Act Aer 2 Puff INH Q6H PRN Reported Methadone (Methadone HCl) 40 Mg Tab 160 Mg PO DAILY Review of Systems Except as stated in HPI: all other systems reviewed are Neg Physical Exam Narrative GENERAL: Well developed well nourished in mild distress SKIN: Focused skin assessment warm/dry. Multiple small papules diffuse over the body. HEAD: Atraumatic. Normocephalic. EYES: Pupils equal and round. No scleral icterus. No injection or drainage. ENT: No nasal bleeding or discharge. Mucous membranes pink and moist. Left tympanic membrane flaccid. No obvious perforation. NECK: Trachea midline. No JVD. Left anterior lymphadenopathy CARDIOVASCULAR: Regular rate and rhythm. No murmur appreciated. RESPIRATORY: No accessory muscle use. Clear to auscultation. Breath sounds equal bilaterally. End expiratory wheezes GASTROINTESTINAL: Abdomen soft, non-tender, nondistended. Hepatic and splenic margins not palpable. MUSCULOSKELETAL: No obvious deformities. No clubbing. No cyanosis. No edema. NEUROLOGICAL: Awake and alert. No obvious cranial nerve deficits. Motor grossly within normal limits. Normal speech. PSYCHIATRIC: Appropriate mood and affect; insight and judgment normal. Data Data Last Documented VS Vital Signs Date Time Temp Pulse Resp B/P (MAP) Pulse Ox O2 Delivery O2 Flow Rate FiO2 07/11/17 18:43 07/11/17 17:00 16 07/11/17 15:04 98.4 95 98 Orders Orders Diphenhydramine (Benadryl) (07/11/17 16:30) Gc And Chlamydia Pcr (07/11/17 16:18) Wet Prep Profile (07/11/17 16:18) Urinalysis - C+S If Indicated (07/11/17 16:18) Ed Urine Pregnancytest Poc (07/11/17 16:18) Azithromycin Powd Pack (Zithromax Powd P (07/11/17 16:30) Ceftriaxone Inj (Rocephin Inj) (07/11/17 16:30) Ed Discharge Order (07/11/17 18:15) Labs Laboratory Tests Test 07/11/17 17:10 Urine Color YELLOW Urine Turbidity HAZY Urine pH 5.5 Urine Specific [place] 1.045 Urine Protein 30 mg/dL Urine Glucose (UA) NEG mg/dL Urine Ketones NEG mg/dL Urine Occult Blood NEG Urine Nitrite NEG Urine Bilirubin NEG Urine Urobilinogen 2.0 MG/DL Urine Leukocyte Esterase TRACE Urine WBC 4 /hpf Urine Squamous Epithelial Cells 3 /hpf Urine Mucus MANY /lpf Microscopic Urinalysis Comment CULT NOT INDICATED Clue Cells (Wet Prep) NONE SEEN Vaginal Trichomonas (Wet Prep) NONE SEEN Vaginal Yeast (Wet Prep) NONE SEEN MDM Medical Decision Making Medical Screen Exam Complete: Yes Emergency Medical Condition: Yes Differential Diagnosis Left Tympanic membrane rupture, otitis media, and tympanic membrane disorder Chlamydia, gonorrhea, bacterial vaginosis Narrative Course 32-year-old female presents to emergency department with multiple medical complaints complaining of left ear pain and throat pain. States that she was here last week and was treated for her throat pain but her left ear continues to be painful and she hears "crawling around in her ear". Patient also complains of decreased hearing. Patient states that she is also having some lesions on her scan and again feels like there are bugs crawling on her skin. 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 Patient then started complaining about vaginal discharge for 2 weeks described as creamy and yellow with an odor. Patient says that she is monogamous however, her boyfriend may not be. Patient states she had a tubal ligation previously says she is not . Patient denies fever or chills. States she does not have shortness of breath or chest pain. Denies nausea, vomiting or diarrhea. Denies pelvic cramping. Says she is monogamous but is unsure of her significant other. Patient denies fever or chills. Vital signs stable. Physical exam findings consistent with a tympanic membrane rupture left ear, bedbug bites, vaginal infection. Urinalysis unremarkable. Patient will be treated chlamydia and gonorrhea. Patient be discharged home with permethrin cream. Advised that all partners or contacts should be treated as well. Patient remained stable throughout the hospital visit today. Advised follow-up with his [facility] for further treatment and evaluation. Advised to return to emergency For worsening persistent symptoms. Diagnosis Primary Impression: Urethritis Additional Impressions: Bedbug bite Qualified Codes: W57.XXXA - Bitten or stung by nonvenomous insect and other nonvenomous arthropods, initial encounter Tympanic membrane disorder Qualified Codes: H73.92 - Unspecified disorder of tympanic membrane, left ear Referrals: [facility] Additional Instructions: Take medication as prescribed. If your symptoms persist or worsen return to the emergency department. Follow-up with her primary care physician within 2-3 days. Continue to use Benadryl for his symptoms. If you develop fever, chills, severe abdominal pain, persistent vomiting or inability to eat return to the emergency department. Your pelvic exam today did not include a Pap smear. It is important to followup with a adjuster leader on a yearly basis to be tested for cervical cancer as we do not do that from the emergency department. If there is a concern that you have sexually transmitted disease, your partner should be tested. You should followup with your adjuster leader or with the health department to get tested for other sexually transmitted diseases like HIV and syphilis, as we do not test for these in the emergency department Scripts Permethrin Topical 5% (Permethrin Topical 5%) 5% Cream 1 APPLIC TOPICAL ONCE for Scabies, #1 TUBE 0 Refills Apply head to toe, leave on for 8-12 hours, then rinse off. Prov: Nely Rocha 07/11/17 Albuterol 18 GM Inh (Ventolin Hfa 18 GM Inh) 90 Mcg/Act Aer 1 PUFF INH Q4H Y for SHORTNESS OF BREATH, #1 INHALER 0 Refills Prov: Nely Rohca 07/11/17 Disposition: 01 DISCHARGE HOME Condition: Stable Nely Rocha Jul 11, 2017 16:23
[2017-07-11] MEDS ORDERED: cefTRIAXone 250 MG VIAL IM ONE (16:30)
[2017-07-11] MEDS ORDERED: AZITHROMYCIN PWD FOR SUSP 1 GM PACKET PO ONE (16:30)
[2017-07-11] MEDS ORDERED: diphenhydrAMINE HCL 25 MG CAP PO ONE (16:30)
[2017-07-11 17:38] LABS: BLOOD, URINE NEG (NEG); GLUCOSE,URINE NEG (NEG); KETONE, URINE NEG (NEG); MUCUS URINE MANY /lpf (OCC); NITRITE,URINE NEG (NEG); PH, URINE 5.5 (5.0-8.5); SQUAMOUS EPITHELIAL CELL URINE 3 /hpf (0-5); URINE COLOR YELLOW (YELLW/STRAW); URINE LEUKOCYTE ESTERASE TRACE (NEG)
[2017-07-11 17:50] LABS: BILIRUBIN, URINE NEG (NEG)
[2017-07-11] MEDS ORDERED: PERM5CRE TOPICAL (18:15)
[2017-07-11] MEDS ORDERED: VENTAER INH (18:15)
== END 2017-07-11 18:44 | disposition home or self-care (01) ==
LOC: NEPD 15:01
DX: N34.2 Other urethritis (principal); H73.92 Unspecified disorder of tympanic membrane, left ear; R07.0 Pain in throat; Z79.899 Other long term (current) drug therapy; Z72.0 Tobacco use
CPT/HCPCS: 81001; 84703; 87210; 87491; 87591; 96372; 99284; J0696

== ENCOUNTER 2017-07-20 17:01 | Emergency (ER) | payer SELFPAY ==
[~2017-07-20] VITALS: Ht 152.4 cm; Wt 75.0 kg
[~2017-07-20 17:01] MED LIST changes: +PERM5CRE TOPICAL
[2017-07-20 17:02] VITALS: BP 141/91; PULSE 101; RESP 20; TEMP 98.1; O2SAT 100
--- NOTE | 2017-07-20 17:29 | PD ---
HPI Chief Complaint: ENT Complaint Time Seen by Provider: 17:17 Travel History International Travel<30 days: No Contact w/Intl Traveler<30days: No Traveled to known affect area: No History of Present Illness HPI 32-year-old female presents the emergency Department with complaints of bilateral ear pain or sinus congestion, pain behind both eyes, and question of dental pain as well. Patient states the symptoms have been ongoing for approximately 2 weeks. Patient denies fever or chills. The pain and pressure at all in the frontal sinus and maxillary sinuses. She states pain is worse at night. She wakes up with ear pain bilaterally. She states she has pain with chewing. His no sore throat or difficulty swallowing. No significant cough or postnasal drip noted. No nausea or vomiting. Patient does admit to severe amount of stress recently in her life but denies suicidal or homicidal ideation. Pain is described as burning and tingly. It is 8 out of 10. She has no known drug allergies. PFSH Past Medical History Diminished Hearing: No : 4 Para: 3 Miscarriage: 1 Ovarian Cysts: Yes Tubal Ligation: Yes Past Surgical History Section: Yes (X2) Other Surgery: Yes () Social History Alcohol Use: No Tobacco Use: Yes Substance Use: No Allergies-Medications (Allergen,Severity, Reaction): Coded Allergies: No Known Allergies (Unverified Adverse Reaction, Unknown, 07/05/17) Reported Meds & Prescriptions Reported Meds & Active Scripts Active Flexeril (Cyclobenzaprine HCl) 10 Mg Tab 10 Mg PO HS Flonase Nasal [place] (Fluticasone Nasal [place]) 50 Mcg/Act [place] 100 Mcg EACH NARE BID Amoxicillin 875 Mg Tab 875 Mg PO BID 10 Days Permethrin Topical 5% (Permethrin) 5% Cream 1 Applic TOPICAL ONCE Apply head to toe, leave on for 8-12 hours, then rinse off. Ventolin Hfa 18 GM Inh (Albuterol Sulfate) 90 Mcg/Act Aer 1 Puff INH Q4H PRN Tessalon Perles (Benzonatate) 100 Mg Cap 200 Mg PO TID PRN Ventolin Hfa 18 GM Inh (Albuterol Sulfate) 90 Mcg/Act Aer 2 Puff INH Q6H PRN Reported Methadone (Methadone HCl) 40 Mg Tab 160 Mg PO DAILY Review of Systems Except as stated in HPI: all other systems reviewed are Neg General / Constitutional: Positive: Chills, No: Fever Eyes: Positive: Other, No: Diploplia, Blurred Vision, Photophobia, Drainage, Redness, Foreign Body Sensation, Pain, Tearing, Blind Spots, Visual changes, Blindness HENT: Positive: Headaches (pressure behind both eyes), Rhinitis, Rhinorrhea, Congestion, Dental Difficulties, Earache, No: Vertigo, Lightheadedness, Sore Throat, Nosebleed, Neck Stiffness, Neck Pain, Masses, Gingival Bleeding, Ear Discharge, Other Cardiovascular: No: Chest Pain or Discomfort Respiratory: No: Cough, Shortness of Breath, Wheezing Gastrointestinal: No: Nausea, Vomiting, Diarrhea, Abdominal Pain Genitourinary: No: Dysuria Musculoskeletal: No: Pain Skin: No Rash Neurologic: No: Weakness Psychiatric: Positive: Anxiety, No: Depression, Suicidal Ideations, Homicidal Ideation Endocrine: No: Polydipsia Hematologic/Lymphatic: No: Easy Bruising Physical Exam Narrative GENERAL: Patient appears stressed and anxious but otherwise in no obvious distress. SKIN: Warm and dry. Normal color. Normal turgor. No rash. HEAD: Atraumatic. Normocephalic. Patient is sinus tenderness with palpation to both frontal and maxillary sinuses. EYES: Pupils equal and round. No scleral icterus. No injection or drainage. ENT: No nasal bleeding or discharge. Mucous membranes pink and moist. TMs are clear bilaterally. The pharynx is unremarkable. Teeth do not show obvious signs of abscess, but do have signs of mild periodontal disease. Patient has pain with palpation along the TMJ bilaterally. NECK: Trachea midline. Supple nontender without lymphadenopathy. CARDIOVASCULAR: Regular rate and rhythm. RESPIRATORY: No accessory muscle use. Clear to auscultation. Breath sounds equal bilaterally. MUSCULOSKELETAL: Extremities without clubbing, cyanosis, or edema. No obvious deformities. NEUROLOGICAL: Awake and alert. No obvious cranial nerve deficits. Motor grossly within normal limits. Five out of 5 muscle strength in the arms and legs. Normal speech. PSYCHIATRIC: Appropriate mood and affect; insight and judgment normal. Data Data Last Documented VS Vital Signs Date Time Temp Pulse Resp B/P (MAP) Pulse Ox O2 Delivery O2 Flow Rate FiO2 07/20/17 17:02 98.1 101 20 141/91 (108) 100 Room Air Orders Orders Ed Discharge Order (07/20/17 17:41) MDM Medical Decision Making Medical Screen Exam Complete: Yes Emergency Medical Condition: Yes Differential Diagnosis Otalgia. TMJ. Dental pain. Anxiety. Narrative Course Patient will be treated with amoxicillin 875 twice a day 10 days. Patient also given Flonase nasal spray 2 sprays each nostril daily. Patient also given Flexeril 10 mg daily at bedtime #30. Patient can take Tylenol and ibuprofen as needed as well. Work note is given. Patient is recommended to follow with [facility]. 1745 hrs. patient is reevaluated if she is complaining about "not being able to see", chest pain, and "foaming in her mouth". Patient is moved from K pod to D pod for further evaluation. Patient is discussed with Dr. Hummel. Diagnosis Primary Impression: Acute pansinusitis, unspecified Qualified Codes: J01.40 - Acute pansinusitis, unspecified Additional Impression: TMJ arthralgia Qualified Codes: M26.623 - Arthralgia of bilateral temporomandibular joint Referrals: [facility] Patient Instructions: General Instructions, Sinusitis (ED), Temporomandibular Disorder (ED) Departure Forms: Work Release Enter return to work date: Jul 22, 2017 Additional Instructions: Patient will be treated with amoxicillin 875 twice a day 10 days. Patient also given Flonase nasal spray 2 sprays each nostril daily. Patient also given Flexeril 10 mg daily at bedtime #30. Patient can take Tylenol and ibuprofen as needed as well. Work note is given. Patient is recommended to follow with [facility]. Med/Other Pt SpecificInfo: Prescription(s) given Scripts Cyclobenzaprine (Flexeril) 10 Mg Tab 10 MG PO HS for Muscle Spasm, #30 TAB 0 Refills Prov: Roberth Light MD 07/20/17 Fluticasone Nasal [place] (Flonase Nasal [place]) 50 Mcg/Act [place] 100 MCG EACH NARE BID for Allergies, #1 BOTTLE 0 Refills Prov: Roberth Light MD 07/20/17 Amoxicillin (Amoxicillin) 875 Mg Tab 875 MG PO BID for Infection for 10 Days, #20 TAB 0 Refills Prov: Roberth Light MD 07/20/17 Condition: Stable Ahmet Finn Jul 20, 2017 17:29
[2017-07-20] MEDS ORDERED: AMOX875T PO (17:32)
[2017-07-20] MEDS ORDERED: FLUT1SPR5 EACH NARE (17:32)
[2017-07-20] MEDS ORDERED: CYCL10TA PO (17:32)
--- NOTE | 2017-07-20 18:20 | RADRPT ---
EXAM DATE/TIME: 07/20/2017 17:59 [facility] COMPARISON: CHEST SINGLE AP, May 18, 2016, 15:10. INDICATIONS : Chest Pain MEDICAL HISTORY : None. SURGICAL HISTORY : Tubal ligation. ENCOUNTER: Initial ACUITY: 1 day PAIN SCORE: 4/10 LOCATION: Bilateral chest FINDINGS: The lungs are clear without infiltrate, nodule, or mass. There is no appreciable pleural effusion fo r technique. Heart and mediastinum are unremarkable. CONCLUSION: No acute cardiopulmonary disease. Annelise Araiza MD on July 20, 2017 at 18:17 Board Certified Radiologist. This report was verified electronically.
[2017-07-20 18:36] VITALS: O2SAT 99
--- NOTE | 2017-07-20 19:19 | PD ---
Physical Exam Date Seen by Provider: Jul 20, 2017 Data Data Last Documented VS Vital Signs Date Time Temp Pulse Resp B/P (MAP) Pulse Ox O2 Delivery O2 Flow Rate FiO2 07/20/17 18:36 99 Room Air 07/20/17 17:02 98.1 101 20 Orders Orders Ed Discharge Order (07/20/17 17:41) Electrocardiogram (07/20/17 ) Chest, Pa & Lat (07/20/17 17:53) Ed Urine Pregnancytest Poc (07/20/17 17:53) Dexamethasone Inj (Decadron Inj) (07/20/17 19:30) Lorazepam Inj (Ativan Inj) (07/20/17 19:30) Drug Screen, Random Urine (07/20/17 19:19) Ecg Monitoring (07/20/17 19:25) Oximetry (07/20/17 19:25) [facility] Medical Record Reviewed: Yes Supervised Visit with [facility]SH[facility]: Yes Differential Diagnosis Sinusitis, anxiety reaction Narrative Course I, Dr. Hummel, have reviewed the advance practice practitioner's documentation and am in agreement, met with the patient face to face, made the diagnosis, and the medical decision making was done by me. *My assessment and Findings: Sinusitis with anxiety reaction Patient is a 32 year old female with multiple complaints, reports that she has been having increased sinus congestion, ear pain. Reports that her throat feels sore and she has not been feeling well. Patient was diagnosed with sinusitis and was discharged with a prescription for amoxicillin 875 mg twice a day for 10 days. At discharge, patient reports that she began to have sharp stabbing pains to her chest and is feeling sob. Patient reports that her throat feels irritated. Patient reports that she is extremely anxious. Last Impressions Chest X-Ray [id number]/20/[id number] Signed Impressions: Service Date/Time: Thursday, July 20, 2017 17:59 - CONCLUSION: No acute cardiopulmonary disease. Annelise Araiza MD EKG at 1815: Sinus tact at 100bpm, qt/qtc: 293/350, no acute st or t wave changes Patient is hyperventilating in the emergency room. VSS, Pulse ox stable. plan to give a dose of ativan IM and monitor patient Patient feeling much better after ativan administration. She request work note. She will follow up with her pcp and will return to ER as needed Diagnosis Primary Impression: Acute pansinusitis, unspecified Qualified Codes: J01.40 - Acute pansinusitis, unspecified Additional Impressions: TMJ arthralgia Qualified Codes: M26.623 - Arthralgia of bilateral temporomandibular joint Anxiety Referrals: [facility] Patient Instructions: General Instructions, Sinusitis (ED), Temporomandibular Disorder (ED) Departure Forms: Work Release Enter return to work date: Additional Instruction: Patient will be treated with amoxicillin 875 twice a day 10 days. Patient also given Flonase nasal spray 2 sprays each nostril daily. Patient also given Flexeril 10 mg daily at bedtime #30. Patient can take Tylenol and ibuprofen as needed as well. Work note is given. Patient is recommended to follow with [facility]. Scripts Fluticasone Nasal [place] (Flonase Nasal [place]) 50 Mcg/Act [place] 100 MCG EACH NARE BID for Allergies, #1 BOTTLE 0 Refills Prov: Roberth Light MD 07/20/17 Amoxicillin (Amoxicillin) 875 Mg Tab 875 MG PO BID for Infection for 10 Days, #20 TAB 0 Refills Prov: Roberth Light MD 07/20/17 Disposition: 01 DISCHARGE HOME Condition: Stable Genevieve Hummel DO Jul 20, 2017 19:19
[2017-07-20] MEDS ORDERED: DEXAMETHASONE SOD PHOS 20 MG/5 ML VIAL IM ONE (19:30)
[2017-07-20] MEDS ORDERED: LORazepam 2 MG/ML VIAL IM ONE (19:30)
[2017-07-20 20:42] VITALS: O2SAT 99
--- NOTE | 2017-07-21 18:02 | EKG ---
Date Performed: 07/20/2017 Time Performed: 18:15:54 PTAGE: 32 years EKG: SINUS TACHYCARDIA NONSPECIFIC T-WAVE ABNORMALITY ABNORMAL RHYTHM ECG PREVIOUS TRACING : 05/19/2016 12.02 Compared to prior tracing no significant change DOCTOR: Herb Stanley Interpretating Date/Time 07/21/2017 18:00:23
== END 2017-07-20 21:07 | disposition home or self-care (01) ==
LOC: NEPK 17:01 → NEPD 21:07
DX: J01.40 Acute pansinusitis, unspecified (principal); M26.629 Arthralgia of temporomandibular joint, unspecified side; F41.1 Generalized anxiety disorder; R94.31 Abnormal electrocardiogram [ECG] [EKG]; N83.209 Unspecified ovarian cyst, unspecified side; Z72.0 Tobacco use
CPT/HCPCS: 71046; 84703; 93005; 96372; 99285; J1100; J2060

== ENCOUNTER 2017-11-25 12:37 | Emergency (ER) | payer SELFPAY ==
[~2017-11-25] VITALS: Ht 154.9 cm; Wt 72.5 kg
[~2017-11-25 12:37] MED LIST changes: +AMOX875T PO; +FLUT1SPR5 EACH NARE; -PERM5CRE TOPICAL
[2017-11-25 13:00] VITALS: BP 135/76; PULSE 83; RESP 14; TEMP 98.7; O2SAT 100
[2017-11-25] MEDS ORDERED: KETOROLAC TROMETHAMINE 60 MG/2 ML (IM) VIAL IM ONE (14:00)
[2017-11-25] MEDS ORDERED: ACYC800T PO (14:00)
--- NOTE | 2017-11-25 14:00 | PD ---
HPI Chief Complaint: ENT Complaint Time Seen by Provider: 13:35 Travel History International Travel<30 days: No Contact w/Intl Traveler<30days: No Traveled to known affect area: No History of Present Illness HPI 32-year-old female presents to the emergency department with complaint of bilateral ear pain since July after having a left eardrum rupture. She has had worsening of pain of the left ear 2-3 days. On examination I noticed a rash to the tragus of the left ear and left scalp area, which apparently her boyfriend had told her not to mention, because apparently there were some issues with cockroaches that he did not want us to know about. I do not feel the rash is associated with cockroaches. She denies fever, vomiting. Rates pain 10/10. Has tried taking aspirin and ibuprofen for symptom management. She takes methadone daily. She is currently on amoxicillin and has a follow-up appointment with her ear nose throat specialist tomorrow. No known aggravating or relieving factors. Pain is constant. Burning in nature. No primary care provider. History of chickenpox as a child. No history of previous shingles. No known exposures. no known allergies. Denies significant past medical history. Has no other medical complaints. No other modifying factors or associated signs and symptoms. PFSH Past Medical History Medical History: Denies Significant Hx Diminished Hearing: No Tetanus Vaccination: Unknown Influenza Vaccination: No ?: Not : 4 Para: 3 Miscarriage: 1 Ovarian Cysts: Yes Tubal Ligation: Yes Past Surgical History Section: Yes (X2) Other Surgery: Yes () Social History Alcohol Use: No Tobacco Use: Yes (1/2 PPD) Substance Use: No Allergies-Medications (Allergen,Severity, Reaction): Coded Allergies: No Known Allergies (Unverified Adverse Reaction, Unknown, 11/25/17) Reported Meds & Prescriptions Reported Meds & Active Scripts Active Ibuprofen 800 Mg Tab 800 Mg PO Q6HR PRN Acyclovir 800 Mg Tab 800 Mg PO 5 TIMES A DAY 7 Days Amoxicillin 875 Mg Tab 875 Mg PO BID 10 Days Ventolin Hfa 18 GM Inh (Albuterol Sulfate) 90 Mcg/Act Aer 2 Puff INH Q6H PRN Reported Methadone (Methadone HCl) 40 Mg Tab 160 Mg PO DAILY Review of Systems Except as stated in HPI: all other systems reviewed are Neg Physical Exam Narrative GENERAL: Well-nourished, well-developed femur patient, in no acute distress SKIN: Warm and dry. Tragus of left ear and left scalp, above the ear and posterior left scalp with small areas of erythremic grouped vesicles present, that appear to be consistent with herpetic lesions, consistent with possible shingles. No drainage or edema. No lymphadenopathy. HEAD: Atraumatic. Normocephalic. EYES: Pupils equal and round. No scleral icterus. No injection or drainage. ENT: Mucosa pink and moist. Airway patent. EARS: Bilateral pinnae and external canals appear within normal limits. Left tympanic membranes without erythema, dullness or perforation. NECK: Trachea midline. CARDIOVASCULAR: Regular rate. RESPIRATORY: No accessory muscle use. GASTROINTESTINAL: Rounded. MUSCULOSKELETAL: No obvious deformities. No clubbing. No cyanosis. No edema. NEUROLOGICAL: Awake and alert. Oriented 3. No obvious cranial nerve deficits. Motor grossly within normal limits. Normal speech. PSYCHIATRIC: Appropriate mood and affect; insight and judgment normal. Data Data Last Documented VS Vital Signs Date Time Temp Pulse Resp B/P (MAP) Pulse Ox O2 Delivery O2 Flow Rate FiO2 11/25/17 13:00 98.7 83 14 135/76 (95) 100 Orders Orders Ketorolac Inj (Toradol Inj) (11/25/17 14:00) Ed Discharge Order (11/25/17 14:00) Wound Culture And Gram Stain (11/25/17 14:04) [facility] Medical Decision Making Medical Screen Exam Complete: Yes Emergency Medical Condition: Yes Medical Record Reviewed: Yes Differential Diagnosis Shingles, nonspecific rash, otitis media, otitis externa, tympanic membrane rupture Narrative Course 32-year-old female with suspected shingles rash to the left scalp and ear. Rash appears herpetic in nature. She has no rash anywhere else on the scalp that I noticed on exam. Toradol administered in the ER. Ibuprofen and valacyclovir prescribed for home. Patient has follow-up appointment with ENT tomorrow. Left TM appears normal. Discussed patient with Dr. Hummel, my attending physician, and she agrees with my plan of care and discharge. Instructed patient to follow up with primary care provider. Patient verbalizes understanding and agreement with treatment plan. Patient is medically cleared and stable for discharge. Discussed reasons to return to the emergency department. Patient agrees with treatment plan. The patients vital signs are stable and the patient is stable for outpatient follow-up and treatment. Patient discharged home, stable and in no acute distress. Diagnosis Primary Impression: Shingles rash Qualified Codes: B02.9 - Zoster without complications Referrals: [facility] [employer] [facility] Ear / Nose / Throat Specialist Primary Care Physician Patient Instructions: General Instructions, Shingles (ED) Departure Forms: Tests/Procedures, Work Release Enter return to work date: November 27, 2017 Additional Instructions: Shingles is contagious Keep area covered with clothing to avoid spreading to others Wash hands frequently Take medications as prescribed Cold, wet compresses to the rash to help relieve itching and pain as needed Cool Bath to help relieve itching and pain as needed Follow-up with a primary care provider Return to the emergency department immediately with worsening of symptoms Med/Other Pt SpecificInfo: Prescription(s) given Scripts Ibuprofen (Ibuprofen) 800 Mg Tab 800 MG PO Q6HR Y for PAIN, #30 TAB 0 Refills Prov: Farideh Pleitez 11/25/17 Acyclovir (Acyclovir) 800 Mg Tab 800 MG PO 5 TIMES A DAY for Mgmt Viral Infection for 7 Days, TAB 0 Refills Prov: Farideh Pleitez 11/25/17 Disposition: 01 DISCHARGE HOME Condition: Stable Farideh Pleitez November 25, 2017 14:00
[2017-11-25] MEDS ORDERED: IBUP1TAB7 PO (14:01)
== END 2017-11-25 14:28 | disposition home or self-care (01) ==
LOC: NEPD 12:37
DX: B02.9 Zoster without complications (principal); F17.200 Nicotine dependence, unspecified, uncomplicated
CPT/HCPCS: 86403; 87070; 87186; 96372; 99283; J1885

== ENCOUNTER 2017-12-25 16:34 | Emergency (ER) | payer SELFPAY ==
[~2017-12-25] VITALS: Ht 152.4 cm; Wt 120.0 kg
[~2017-12-25 16:34] MED LIST changes: +ACYC800T PO; -BENZ100 PO; -FLUT1SPR5 EACH NARE; +IBUP1TAB7 PO
[2017-12-25 16:45] VITALS: BP 156/72; PULSE 101; RESP 16; TEMP 97.8; O2SAT 100
--- NOTE | 2017-12-25 18:13 | PD ---
HPI Chief Complaint: Medical Clearance Time Seen by Provider: 17:05 Travel History International Travel<30 days: No Contact w/Intl Traveler<30days: No Traveled to known affect area: No History of Present Illness HPI 32-year-old female presents emergency department with complaints of head pain, left ear pain, head pressure, chronic headache, loss of appetite, and bloating. Patient has been here multiple times for complaints of her left ear, and has been treated with multiple strategies and antibiotics with even a prescription in for possible shingles. Patient states none of these symptoms improved with the previous treatments. Patient is fairly stressed out with her current life situation. She states the pain in her ear and neck and head worsened at night. She does admit to depression but denies suicidal ideation. She is having difficulty with finances due to not being able to work. She denies nausea or vomiting, but has decreased appetite. She denies urinary symptoms, however she does state decreased urine output. Her pain in the belly is nonspecific. It is more of a bloating and loss of appetite feeling. PFSH Past Medical History Diminished Hearing: No ?: Not : 4 Para: 3 Miscarriage: 1 Ovarian Cysts: Yes Tubal Ligation: Yes Past Surgical History Section: Yes (X2) Other Surgery: Yes () Social History Alcohol Use: No Tobacco Use: Yes (1/2 PPD) Substance Use: No Allergies-Medications (Allergen,Severity, Reaction): Coded Allergies: No Known Allergies (Unverified Adverse Reaction, Unknown, 12/25/17) Reported Meds & Prescriptions Reported Meds & Active Scripts Active Flexeril (Cyclobenzaprine HCl) 10 Mg Tab 10 Mg PO HS Ibuprofen 800 Mg Tab 800 Mg PO Q8H PRN Ventolin Hfa 18 GM Inh (Albuterol Sulfate) 90 Mcg/Act Aer 2 Puff INH Q6H PRN Reported Methadone (Methadone HCl) 40 Mg Tab 160 Mg PO DAILY Review of Systems Except as stated in HPI: all other systems reviewed are Neg General / Constitutional: No: Fever Eyes: No: Visual changes HENT: Positive: Headaches, Rhinitis, Rhinorrhea, Congestion, Earache, No: Vertigo, Lightheadedness, Sore Throat, Nosebleed, Neck Stiffness, Neck Pain, Masses, Gingival Bleeding, Dental Difficulties, Ear Discharge Cardiovascular: No: Chest Pain or Discomfort Respiratory: No: Cough, Shortness of Breath, Wheezing Gastrointestinal: Positive: Nausea, Loss of Appetite, Other (Abdominal bloating.), No: Vomiting, Diarrhea, Abdominal Pain Genitourinary: Positive: Decreased Urinary Output, No: Urgency, Frequency, Dysuria Musculoskeletal: No: Pain Skin: No Rash Neurologic: No: Weakness Psychiatric: No: Depression Endocrine: No: Polydipsia Hematologic/Lymphatic: No: Easy Bruising Physical Exam Narrative GENERAL: Patient appears anxious and mildly depressed. SKIN: Warm and dry. Normal color. Normal turgor. No rash. HEAD: Atraumatic. Normocephalic. Patient feels sinus compression actually helps her headache. EYES: Pupils equal and round. No scleral icterus. No injection or drainage. Ocular motions are equal bilaterally. ENT: No nasal bleeding or discharge. Mucous membranes pink and moist. Teeth are in good repair. Patient has normal-appearing TMs bilaterally without serous otitis noted. There is no tympanic membrane perforation as previously stated. There is no erythema to either TM. Pharynx is unremarkable. Uvula is midline. Airways patent. No significant lymphadenopathy or tonsillitis. Patient does have pain with palpation to the TMJ regions with audible pop on the left greater than right NECK: Trachea midline. Supple and nontender per CARDIOVASCULAR: Regular rate and rhythm. RESPIRATORY: No accessory muscle use. Clear to auscultation. Breath sounds equal bilaterally. GASTROINTESTINAL: Abdomen soft, non-tender, nondistended. Hepatic and splenic margins not palpable. No CVA tenderness MUSCULOSKELETAL: Extremities without clubbing, cyanosis, or edema. No obvious deformities. NEUROLOGICAL: Awake and alert. No obvious cranial nerve deficits. Motor grossly within normal limits. Five out of 5 muscle strength in the arms and legs. Normal speech. PSYCHIATRIC: Appropriate mood and affect; insight and judgment normal. Data Data Last Documented VS Vital Signs Date Time Temp Pulse Resp B/P (MAP) Pulse Ox O2 Delivery O2 Flow Rate FiO2 12/25/17 16:45 97.8 101 16 156/72 (100) 100 Orders Orders Urinalysis - C+S If Indicated (12/25/17 17:27) [facility] Medical Decision Making Medical Screen Exam Complete: Yes Emergency Medical Condition: Yes Medical Record Reviewed: Yes Differential Diagnosis Depression. Anxiety. TMJ. Ear pain. Nausea. Loss of appetite. Narrative Course Patient appears anxious and mildly depressed but otherwise in no acute distress. I feel the patient is suffering from chronic anxiety and TMJ. She will be treated outpatient with ibuprofen 800 mg 3 times daily with food # 30. Patient also given Flexeril 10 mg nightly #20. Patient should follow-up with [facility] as discussed. Patient recommended to go to [facility] for her depression and anxiety. Patient can return if symptoms worsen. Diagnosis Primary Impression: TMJ arthralgia Qualified Codes: M26.623 - Arthralgia of bilateral temporomandibular joint Additional Impression: Anxiety and depression Referrals: [facility] Patient Instructions: Anxiety (ED), General Instructions, Temporomandibular Disorder (ED) Additional Instructions: I feel the patient is suffering from chronic anxiety and TMJ. She will be treated outpatient with ibuprofen 800 mg 3 times daily with food # 30. Patient also given Flexeril 10 mg nightly #20. Patient should follow-up with [facility] as discussed. Patient recommended to go to [facility] for her depression and anxiety. Patient can return if symptoms worsen. Med/Other Pt SpecificInfo: Prescription(s) given Scripts Cyclobenzaprine (Flexeril) 10 Mg Tab 10 MG PO HS for Muscle Spasm, #20 TAB 0 Refills Prov: Efrain Her MD 12/25/17 Ibuprofen (Ibuprofen) 800 Mg Tab 800 MG PO Q8H Y for Pain/Inflammation, #60 TAB 0 Refills Prov: Efrain Her MD 12/25/17 Disposition: 01 DISCHARGE HOME Condition: Stable Ahmet Finn Dec 25, 2017 18:13
[2017-12-25] MEDS ORDERED: IBUP1TAB7 PO (18:14)
[2017-12-25] MEDS ORDERED: CYCL10TA PO (18:14)
== END 2017-12-25 19:30 | disposition home or self-care (01) ==
LOC: NEPD 16:34
DX: M26.623 Arthralgia of bilateral temporomandibular joint (principal); F32.9 Major depressive disorder, single episode, unspecified; F41.9 Anxiety disorder, unspecified; F17.200 Nicotine dependence, unspecified, uncomplicated
CPT/HCPCS: 99283

== ENCOUNTER 2018-01-11 15:32 | Emergency (ER) | payer SELFPAY ==
[~2018-01-11] VITALS: Ht 152.4 cm; Wt 72.5 kg
[~2018-01-11 15:32] MED LIST changes: -ACYC800T PO; -AMOX875T PO; +CYCL10TA PO
[2018-01-11 15:35] VITALS: BP 165/84; PULSE 80; RESP 14; TEMP 98.2; O2SAT 97
== END 2018-01-11 18:00 | disposition left against medical advice (07) ==
LOC: NED 15:32
DX: R39.9 Unspecified symptoms and signs involving the genitourinary system (principal)
CPT/HCPCS: 99281